=== PATIENT | male | born 1995 | race Two or more races ===

== ENCOUNTER 2023-10-21 10:18 | Emergency (ER) | payer OTHER ==
[2023-10-21 10:28] VITALS: BP 105/61; PULSE 82; RESP 20; TEMP 98.1; BMI 26.4
[2023-10-21] MEDS ORDERED: diphenhydrAMINE HCL 25 MG CAPSULE (FP) PO ONE (11:07)
[2023-10-21] MEDS: diphenhydrAMINE HCL 25 MG CAPSULE (FP) PO ONE (11:12)
== END 2023-10-21 11:20 | disposition home or self-care (01) ==
LOC: JERFT 10:18
DX: L23.7 Allergic contact dermatitis due to plants, except food (principal); L29.9 Pruritus, unspecified; R21 Rash and other nonspecific skin eruption
CPT/HCPCS: 99283-25